=== PATIENT | female | born 1960 | race Caucasian/White ===

== ENCOUNTER → 2017-09-07 | Outpatient (CLI) | payer SELFPAY ==
--- NOTE | 2017-09-07 11:10 | RADIOLOGY REPORT (SQ) ---
EXAM DESCRIPTION: HIP LEFT AP/LATERAL COMPLETED DATE/TIME: 09/07/2017 10:24 am REASON FOR STUDY: PAIN IN LEFT HIP M25.552 PAIN IN LEFT HIP COMPARISON: None. NUMBER OF VIEWS: Two views. TECHNIQUE: AP pelvis and additional frog-leg view of the left hip. LIMITATIONS: None. FINDINGS: MINERALIZATION: Normal. LEFT HIP: There is mild narrowing of the medial joint space in the left hip. There is subchondral cy sts in left acetabulum. There is a tiny spur at the inferior margin of the left femoral head. RIGHT HIP: No fracture or dislocation. No worrisome bone lesions. PUBIS AND ISCHIUM: No fracture. PELVIS: No fracture. SACRUM: No fracture or dislocation. No worrisome bone lesions. LOWER LUMBAR SPINE: No fracture or dislocation. No worrisome bone lesions. No significant disc disea se. SOFT TISSUES: No findings. OTHER: No other significant finding. IMPRESSION: Mild degenerative joint changes in the left hip. TECHNICAL DOCUMENTATION: JOB ID: [id number] [employer]- All Rights Reserved
== END ==
LOC: OD 10:00
PROVIDERS: ATTEND Family Medicine
DX: M25.552 Pain in left hip (principal)

== ENCOUNTER → 2017-11-05 | Outpatient (CLI) | payer SELFPAY ==
--- NOTE | 2017-11-13 17:39 | WOMENS IMAGING REPORT ---
EXAM DESCRIPTION: BILAT SCREENING MAMMO W/CAD COMPLETED DATE/TIME: 11/05/2017 11:16 am REASON FOR STUDY: ROUTINE SCREENING; Z12.31 Z12.31 ENCNTR SCREEN MAMMOGRAM FOR MALIGNANT NEOPLASM O F YOGI COMPARISON: 09/05/2015, Marla Walsh TECHNIQUE: Standard craniocaudal and mediolateral oblique views of each breast recorded using digita l acquisition. LIMITATIONS: None. FINDINGS: Findings present which are benign by mammographic criteria. No suspicious masses, calcifi cations or architectural distortion. Pertinent benign findings: Benign calcification in the right breast retroareolar region medially, and left breast retroareolar region centrally. Asymmetric benign breast tissue in the lower inner quadr ant left breast. Read with the assistance of CAD. .[facility] - R2 [employer] Version 1.3 .[facility] - R2 [employer] Version 1.3 .[facility] - R2 [employer] Version 2.4 .[facility] - R2 Cenova Version 2.4 .[facility] - R2 [employer] Version 9.2 Benign mammographic findings may include one or more of the following: Smooth masses, popcorn/rim/co arse calcifications, asymmetries, post-procedure changes, and lesions with long-standing stability. IMPRESSION: BENIGN MAMMOGRAPHIC FINDINGS. BIRADS 2 BREAST DENSITY: c. The breasts are heterogeneously dense, which may obscure small masses. BIRAD: 2 BENIGN FINDING(S) RECOMMENDATION: ROUTINE SCREENING Please consider bilateral screening tomosynthesis in October 2018, given heterogeneously dense tissu e COMMENT: The patient has been notified of the results by letter per SA requirements. Additional no tification policies are in place for contacting patient with suspicious or incomplete findings. Quality ID #[id number]: The [employer] recommends an annual screening mammogram for women aged 40 years or over. This facility utilizes a reminder system to ensure that all patients receive reminder letters, and/or direct phone calls for appointments. This includes reminders for routine scr eening mammograms, diagnostic mammograms, or other Breast Imaging Interventions when appropriate. Th is patient will be placed in the appropriate reminder system. The [employer] ([employer]) has developed recommendations for screening MRI of the breast s in certain patient populations, to be used in conjunction with mammography. Breast MRI surveillanc e may be appropriate for women with more than 20% lifetime risk of developing breast cancer as deter mined by genetic testing, significant family history of the disease, or history of mantle radiation f or Hodgkins Disease. [employer] Practice Guidelines 2008. TECHNICAL DOCUMENTATION: FINDING NUMBER: (1) ASSESSMENT: (1) JOB ID: [id number] [employer]- All Rights Reserved
== END ==
LOC: WI 10:46
PROVIDERS: ATTEND Family Medicine
DX: Z12.31 Encounter for screening mammogram for malignant neoplasm of breast (principal)
CPT/HCPCS: 77067; G0202

== ENCOUNTER → 2017-12-31 | Outpatient (CLI) | payer SELFPAY ==
--- NOTE | 2017-12-31 09:24 | RADIOLOGY REPORT (SQ) ---
EXAM DESCRIPTION: MRI LT LOWER JOINT WITHOUT COMPLETED DATE/TIME: 12/31/2017 9:07 am REASON FOR STUDY: M16.12 UNILATERAL PRIMARY OSTEOARTHRITIS, LEFT HIP M16.12 UNILATERAL PRIMARY OSTE OARTHRITIS, LEFT HIP COMPARISON: Left hip films 09/07/2017 TECHNIQUE: [employer] images acquired and stored on PACS. Multiplanar images to include fat sensitive s equences as T1, fluid sensitive sequences as T2/STIR and gradient echo sequences. Large FOV fat and f luid sensitive sequences include pelvis and opposite hip. LIMITATIONS: None. FINDINGS: BONE CORTEX AND MARROW: No generalized marrow replacement. No occult fracture. No worriso me bone lesions. LEFT HIP: FEMORAL HEAD: No occult fracture. Moderate chondromalacia with a less than 5 mm subcortical cyst hamilton ght-bearing surface left femoral head on coronal image 15 and sagittal image 16. Normal sphericity o f femoral head/neck junction. No acetabular dysplasia. No evidence femoroacetabular impingement. No s ignificant effusion. ACETABULUM: Moderate subcortical edema with small subcortical cyst formation along the anterior edge of the left acetabular roof, best shown on coronal image 11 and sagittal image 18. Moderate chondrom alacia. LABRUM: Non arthrogram images of the labrum demonstrate degenerate tooth change in the anterior labru m on sagittal images 18-21 TROCHANTER: Trace trochanteric bursal fluid without edema of the distal gluteal tendon or greater tro chanter bone marrow OPPOSITE HIP: Mild subcortical edema in the anterior acetabular roof on coronal image 11. Mild chond romalacia at the hip joint. No effusion. Trace fluid in the trochanteric bursa PELVIS, LOWER LUMBAR SPINE, SACROILIAC JOINTS: PELVIS : No insufficiency/stress fractures. No significant degenerative changes. Sacroiliac joints normal. L SPINE: Lower lumbar bulky facet arthropathy at L4-5 and L5-S1 MUSCLES AND SOFT TISSUES: Adductors and piriformis normal. Abductors and greater trochanteric bursa n ormal without edema or fluid. Iliopsoas bursa without fluid. Hamstring attachments without edema or t ear. PELVIC SOFT TISSUES: No masses or adenopathy. SCIATIC NERVE: Identified, without masses or abnormal signal. OTHER: No other significant finding. IMPRESSION: Osteoarthritis left hip TECHNICAL DOCUMENTATION: JOB ID: [id number] [employer]- All Rights Reserved
== END ==
LOC: RAD 08:42
PROVIDERS: ATTEND Family Medicine
DX: M16.12 Unilateral primary osteoarthritis, left hip (principal)

== ENCOUNTER 2020-12-21 10:29 | Emergency (ER) | payer SELFPAY ==
[2020-12-21 11:42] LABS: ABSOLUTE EOSINOPHILS # (AUTO) 0.1 10^3/uL (0.0-0.6); ABSOLUTE MONOCYTES (AUTO) 0.7 10^3/uL (0.1-1.4); ABSOLUTE NEUT (AUTO) 8.1 10^3/uL (1.7-8.2); BASOPHILS % (AUTO) 0.4 % (0-2); EOSINOPHILS % (AUTO) 0.9 % (0-6); HEMATOCRIT 39.6 % (36.0-47.0); HEMOGLOBIN 13.8 g/dL (12.0-15.5); LYMPHOCYTES % (AUTO) 10.3 % (13-45); MEAN CORPUSCULAR HEMOGLOBIN 31.5 pg (27.0-33.4); MEAN CORPUSCULAR HGB CONC 34.9 g/dL (32.0-36.0); MEAN CORPUSCULAR VOLUME 90 fl (80-97); MONOCYTES % (AUTO) 6.7 % (3-13); PLATELET COUNT 229 10^3/uL (150-450); RED CELL DISTRIBUTION WIDTH 13.4 % (11.5-14.0); SEGMENTED NEUTROPHILS % (AUTO) 81.7 % (42-78); TOTAL CELLS COUNTED % (AUTO) 100 %; WHITE BLOOD COUNT 9.9 10^3/uL (4.0-10.5)
[2020-12-21 12:04] LABS: ALBUMIN 4.7 g/dL (3.5-5.0); ALKALINE PHOSPHATASE 84 U/L (38-126); ANION GAP 10 (5-19); ASPARTATE AMINO TRANSFERASE 40 U/L (14-36); BILIRUBIN,DIRECT 0.2 mg/dL (0.0-0.4); BILIRUBIN,TOTAL 0.8 mg/dL (0.2-1.3); BLOOD UREA NITROGEN 16 mg/dL (7-20); CALCIUM 9.8 mg/dL (8.4-10.2); CARBON DIOXIDE 30 mmol/L (22-30); CHLORIDE 102 mmol/L (98-107); GLUCOSE 110 mg/dL (75-110); POTASSIUM 3.5 mmol/L (3.6-5.0)
[2020-12-21 12:06] LABS: ACETAMINOPHEN < 10 ug/mL (10-30); ALCOHOL < 10 mg/dL (NONE DETECTED); SALICYLATE < 1.0 mg/dL (2.0-20.0)
--- NOTE | 2020-12-21 12:06 | EKG REPORT ---
SEVERITY:- ABNORMAL ECG - SINUS RHYTHM MULTIPLE ATRIAL PREMATURE COMPLEXES NONSPECIFIC ST-T CHANGES- INFERIOR LEADS : Confirmed by: Curt Zabala MD 21-Dec-2020 12:05:45
[2020-12-21 14:03] LABS: APPEARANCE,URINE SLIGHTLY-CLOUDY; BILIRUBIN,URINE NEGATIVE (NEGATIVE); GLUCOSE, URINE NEGATIVE (NEGATIVE); KETONES,URINE TRACE mg/dL (NEGATIVE); LEUKOCYTE ESTERASE,URINE MODERATE (NEGATIVE); NITRITE,URINE NEGATIVE (NEGATIVE); PROTEIN,URINE 100 mg/dL (NEGATIVE); URINE SPECIFIC GRAVITY 1.029
[2020-12-21 14:04] LABS: COLOR,URINE YELLOW
[2020-12-21 14:18] LABS: URINE AMPHETAMINES SCREEN NEGATIVE; URINE BARBITURATES SCREEN NEGATIVE; URINE BENZODIAZEPINES SCREEN NEGATIVE; URINE COCAINE SCREEN NEGATIVE; URINE MARIJUANA (THC) SCREEN NEGATIVE; URINE METHADONE SCREEN NEGATIVE; URINE PHENCYCLIDINE SCREEN NEGATIVE
--- NOTE | 2020-12-21 15:13 | ER Document Report ---
ED General <RISSA MOORE - Last Filed: 12/21/20 19:04> - General Mode of Arrival: Medic Information source: Patient, Emergency Med Personnel TRAVEL OUTSIDE OF THE [place] IN LAST 30 DAYS: No - Related Data Home Medications: Trazadone. Tramadol <GÓMEZ PAYAN - Last Filed: 12/21/20 20:30> - General Chief Complaint: Overdose Stated Complaint: POSSIBLE OVERDOSE Time Seen by Provider: 12/21/20 11:25 Primary Care Provider: [facility] [Outside] - Follow up as needed [facility] [Outside] - Follow up as needed ROSITA LOMBARDO DO [Primary Care Provider] - Follow up as needed - HPI Notes: Patient presents claiming suicidal intent by taking 3 g of trazodone at approximately 7 AM this morning. When found by EMS she was incontinent of stool but was easily awakened. Patient states that she intended to kill herself and she still intends to kill herself. She claims that she took a smaller amount of trazodone along with some Xanax several nights ago fell asleep and then woke up "still alive". Denies ever being in inpatient psychiatry but has been in counseling in the past. States she lives alone with 2 dogs. Her father a couple of years ago who she was very close to. Subsequent to that her boyfriend . Since then she has been alone. 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 (GÓMEZ PAYAN) Past Medical History - General Information source: Patient - Social History Smoking Status: Current Every Day Smoker Family History: Reviewed & Not Pertinent Patient has suicidal ideation: Yes Patient has homicidal ideation: No - Medical History Medical History: Other <GÓMEZ PAYAN - Last Filed: 12/21/20 20:30> - Medical History Notes: Past medical history as documented in the electronic health record is reviewed. (GÓMEZ PAYAN) Review of Systems <GÓMEZ PAYAN - Last Filed: 12/21/20 20:30> - Review of Systems Notes: All other systems reviewed are negative or noncontributory except as noted the present illness. (GÓMEZ PAYAN) Physical Exam <GÓMEZ PAYAN - Last Filed: 12/21/20 20:30> - Vital signs Vitals: Resp BP Pulse Ox 21 H 149/81 H 99 12/21/20 11:04 12/21/20 11:04 12/21/20 11:04 - Notes Notes: General: Well-developed female slender somewhat flat affect soiled with feces basically from head to toe in no acute physiologic distress. Vital signs and nursing documentation were reviewed. HEENT: Grossly normal to inspection. Neck: Supple nontender. Chest: Lungs clear to auscultation all echeverria. Heart: Regular rate and rhythm no murmur. Abdomen: Soft nontender no muscular megaly. Extremities: No clubbing cyanosis or edema. Skin: Warm moist good turgor no rashes. Neurologic: Alert oriented x3. Cranial nerves II through appear intact. No motor or sensory deficits. Psych: Patient is somewhat flat affect and depressed mood. She states that she does intend to kill herself. She states that she is not homicidal. When asked about hearing voices or feeling persecuted she does describe some nebulous sort of vaguely psychotic symptoms. There does not appear to be any karin in her presentation. (GÓMEZ PAYAN) Course - Laboratory Results Result Diagrams: 12/21/20 11:13 12/21/20 11:13 <RISSA MOORE - Last Filed: 12/21/20 19:04> - Laboratory Results Result Diagrams: 12/21/20 11:13 12/21/20 11:13 Critical Laboratory Results Reviewed: No Critical Results - Radiology Results Critical Radiology Results Reviewed: No Critical Results - EKG Interpretation by Me EKG shows normal: Sinus rhythm Rate: Normal When compared to previous EKG there are: Previous EKG unavailable <GÓMEZ PAYAN - Last Filed: 12/21/20 20:30> - Re-evaluation Re-evalutation: 12/21/20 15:13 Patient remained hemodynamically stable throughout her stay. I discussed her case with the behavioral health folks at approximately 1500 hrs. They have gotten some additional information from her neighbors are going to come back and reassess her again and then make a final recommendation. 12/21/20 20:27 The patient remained hemodynamically stable throughout her stay. She was cooperative with her assessment. She is interested in voluntary admission for mental health treatment. These arrangements were made. The plan is to disc harge her from the emergency department. The facility will be ready for her to arrive at 8:30 PM. All of this was coordinated by Daria Wild from our mental health department. (GÓMEZ PAYAN) - Vital Signs Vital signs: Temp Pulse Resp BP Pulse Ox 97.7 F 87 21 H 121/87 H 97 12/21/20 11:41 12/21/20 11:41 12/21/20 14:01 12/21/20 14:01 12/21/20 14:01 - Laboratory Results Laboratory Results Interpreted: 12/21/20 12/21/20 12/21/20 11:13 11:13 13:40 Lymph % (Auto) 10.3 L Seg Neutrophils % 81.7 H Potassium 3.5 L AST 40 H ALT 37 H Urine Protein 100 H Urine Ketones TRACE H Urine Urobilinogen 4.0 H Ur Leukocyte Esterase MODERATE H Urine Ascorbic Acid 20 H Salicylates < 1.0 L Acetaminophen < 10 L - EKG Interpretation by Me Additional EKG results interpreted by me: 12/21/20 20:29 Frequent PACs otherwise unremarkable. (GÓMEZ PAYAN) Discharge <RISSA MOORE - Last Filed: 12/21/20 19:04> <GÓMEZ PAYAN - Last Filed: 12/21/20 20:30> - Discharge Clinical Impression: Overdose Qualifiers: Encounter type: initial encounter Injury intent: intentional self-harm Qualified Code(s): T50.902A - Poisoning by unspecified drugs, medicaments and biological substances, intentional self-harm, initial encounter Condition: Stable Disposition: HOME, SELF-CARE Additional Instructions: You have been evaluated by both medical and behavioral health teams for possible overdose. You have been deemed appropriate for discharge. While in the emergency department you received the following services/or had access to: Medical screening and assessment, nursing services, dietary services, pharmaco logical services, one-on-one counseling and/or psychotherapy, environmental services, and continuous observation by a patient patient safety coordinator. You should continue your home medications as prescribed and follow up with your medication provider. Overdose You have taken more medication than you should have. After your evaluation and care, it is felt that your overdose is not likely to be harmful or of any significant consequences to you and you are being discharged. In the future, you should be careful not to take more medications than what is prescribed for you. Although your overdose does not seem to be of any danger to you at this time, if you develop any unusual or unexpected symptoms after your discharge, you should return to the Emergency Department immediately for re-evaluation. Depression Your evaluation reveals that you have mental depression. While symptoms may be vague, they often include disturbance of sleep, fatigue, loss of appetite, and general loss of interest in life. While depression may be a side effect of drugs, or a reaction to a major change in your life, many cases have no known cause. If depression is acute, and related to a major loss in your life, you can expect it to clear completely with time. If you have been depressed a long time, are prone to repeated bouts of depression or low mood, or have been thinking of suicide, get help. Depression can be treated with anti-depressant medication and counselling. Long-term depression will often take a few weeks to clear, even with appropriate medication. Follow-up care is important. Contact your physician, the hospital emergency center, crisis line, or your counsellor if you are losing control or having self-destructive thoughts. Suicidal Ideation Suicidal ideation is a common medical term for thoughts about suicide, which may be as detailed as a formulated plan, without the suicidal act itself. Although most people who undergo suicidal ideation do not commit suicide, some go on to make suicide attempts. The range of suicidal ideation varies grea tly from fleeting to detailed planning, role playing, and unsuccessful attempts. While thoughts about suicide are common, most people do not carry out serious actions to commit suicide. However, based upon your evaluation and discussion with you, we believe you are not currently at risk to act upon your thoughts of suicide. Therefore, you will be discharged home, with plan to immediately go to [facility]. Follow up care: You are currently not involved in outpatient services, but are highly recommended to begin outpatient services. You are also recommended to request medication management with outpatient provider to assist with depression, if you feel this is necessary. You have agreed to go to [facility], voluntarily, and you calling and providing them with your information, you have been accepted. You will be going to [facility] at 2030 for an initial assessment, as follow up. You have been given a community outpatient referral list to include phone numbers for [facility] and [facility] mobile crisis. If you experience worsening or a significant change in your symptoms, notify the physician immediately, utilize mobile crisis, or return to the Emergency Department at any time for re-evaluation. Your neighbor, Ms. Turner, has agreed to take care of your dogs until you return home and has bene provided the phone number to [place] [facility] if she needed to try and get in touch with you. Dr. Laughlin was consulted to care management of this patient; attending physicians in agreement with recommendations and disposition. Referrals: ROSITA LOMBARDO, [Primary Care Provider] - Follow up as needed [facility] [Outside] - Follow up as needed [facility] [Outside] - Follow up as needed
--- NOTE | 2020-12-21 16:11 | PSYCHOLOGICAL NOTE ---
Psych Note - Psych Note Date seen by psych provider: 12/21/20 Time seen by psych provider: 12:02 Psych Note: Reason for Consult: possible overdose Consent permissions: Yue, neighbor, ; Vijay, nurse ob of [employer] (pt was employed here) [phone] [id number] Patient is a 60 year old female who was admitted to the ED via EMS. Patient reports intentionally overdosing on 30 pills of Trazodone. She states she had it refilled a couple of days ago and ingested the whole bottle. She states she was ready to and has intermittent thoughts of not being alive. Patient denies current suicidal ideation, plan, and intent, however notes she is upset she failed at attempting suicide. She reports attempting suicide a couple of days ago by taking about 10 Xanax. She did not seek medical or mental health treatment for this. Patient is unable to recall psychiatric medications she is prescribed and informed clinician to check the list on her chart. Patient reports seeing a psychologist three times in her past; when she was a child, when she got a DUI several years ago, and when her father in 2017. When asked about Jaxon Cloud as a POC on her chart, patient states that Marco was her boyfriend who about 1.5 years ago. Patient reports she lives alone with 2 dogs in which her neighbor, Yue, is currently taking care of. She state she is involved with a gentleman who is . She reports having sex with him 2 weeks ago and is now concerned about passing HIV to him as she fears she may have HIV. Patient fears this due to never having been tested and having small lumps on her hip, which she researched and this is a sign of HIV, according to patient. Patient reports stressors to include feeling guilty about possibly passing HIV to this man. She states she is still currently involved with him. Patient denies current suicidal and homicidal ideation, plan, and intent. She states she has no kids, but has a brother in [place] in which she does not have his number and does not want him contacted. 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 She has been to rehab in the past. [id number] Checked back in with patient. Inquired about Trazodone overdose as patients labs do not support and symptoms are not consistent with what poison control reported. Patient swears she ingested Trazodone, went to lay back down and couldnt sleep, and then went to her porch when her head started buzzing. She states her neighbor came over and patient asked her to call for help. Clinician inquired about patient asking Yue for dog assistance this weekend due to being out of town and patient states she planned to go to a psychiatric facility. When asked why patient chose to overdose and not go to the psychi atric facility, she noted that there was more to the story. She states she is positive for herpes and asked the man she is involved with to get checked. She states she may have AIDS and began to destroy information and evidence on her computer. Patient reports that she then went to the police station ([facility]) to report that she destroyed her computer and that she cannot get in trouble for the AIDS thing as this was the first time it happened. She reports she is on the registry and has not been in the past. She states she is embarrassed and had 3 choices, run away, sit and wait, or kill herself. She states she wants to get help and "make a change." Patient inquires about Coral taking care of dogs all weekend and was informed clinician can call Yue back with update if admitted to [facility]. Clinician also reminded patient she already inquired with Yue about taking care of dogs this weekend and Yue confirmed. Clinician will reach out to bakari Turner. Collateral: bakari Turner, [id number] Yue reports being friends with Gracie for about 2 years, since living near her. She states she is at work and will call back in 15 minutes. [id number] Yue states she does not know about mental health history. She reports patient used to go to therapy and is prescribed anti-depressants. Neighbor reports patient has never talked about trying to hurt herself or anything extreme. Bakari reports known history of alcoholism, over 10 years ago. She reports when 11 was called patient was sitting on her porch, cold, responsive, but seemed out of it. Neighbor reports patient allegedly vomited prior to neighbor arriving; notes another neighbor was present as well. Bakari is unsure about stressors due to working a lot recently and not seeing patient much over the past month. Reports patient used to work at [employer] (where neighbor also works), but stopped in fall 2019. 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 Reports patients family does not live in the state of [place]. Neighbor states finding out at work today that patient told a co-worker of hers, at [employer], that patient reported to him last night that she needed to check herself into a mental facility for the weekend. Neighbor notes that last night patient text her to ask if she could let the dogs out this weekend said she was going out of town. Clinician inquired about attention seeking behaviors and neighbor denies. Patient was alert and oriented to self, person, place, time and situation. Mood was lethargic with congruent affect. She denies current suicidal and homicidal ideation, plan, and intent. Patient did not appear to be responding to internal stimuli as evidenced by fair eye contact and answering questions appropriately when addressed. Thought processes are linear and organized. Conversational speech was within normal limits for rate, tone and prosody. Intellectual abilities are estimated to be average. Insight, judgment, and impulse control were poor as evidenced by allegedly taking a bottle of pills. Patient engages appropriately. She demonstrates future forward goal oriented thinking as she inquires about her dogs being taken care of this weekend. Clinical Presentation: suicidal ideations, depression, alleged overdose IVC Criteria per [place] GS 122C Dangerous to others Within the relevant past the individual No has inflicted or attempted to inflict or threatened to inflict serious bodily harm on another AND No that there is a reasonable probability that this conduct will be repeated. OR No has acted in such a way as to create a substantial risk of serious bodily harm to another AND No that there is a reasonable probability that this conduct will be repeated. OR No has engaged in extreme destruction of property AND NO that there is a reasonable probability that this conduct will be repeated. Previous episodes of dangerousness to others, when applicable, may be considered when determining reasonable probability of future dangerous conduct. Clear, cogent, and convincing evidence that an individual has committed a homicide in the relevant past is prima facie evidence of dangerousness to others. Dangerous to self Within the relevant past the individual has done any of the following: acted in such a way as to show ALL of the following: No The individual would be unable without care, supervision, and the continued assistance of others not otherwise available, to exercise self- control, judgment, and discretion in the conduct of the individual's daily responsibilities and social relations or to satisfy the individual's need for nourishment, personal or medical care, long term, or self-protection and safety. AND No There is a reasonable probability of the individual suffering serious physical debilitation within the near future unless adequate treatment is given. A showing of behavior that is grossly irrational, of actions that the individual is unable to control, of behavior that is grossly inappropriate to the situation, or of other evidence of severely impaired insight and judgment shall create a prima facie inference that the individual is unable to care for himself or herself. OR Yes has attempted suicide or threatened suicide Patient reports attempting suicide via taking about 30 pills of Trazodone 100mg AND No that there is a reasonable probability of suicide unless adequate treatment is given OR No has mutilated himself or herself or attempted to mutilate himself or herself AND No that there is a reasonable probability of serious self-mutilation unless adequate treatment is given. NOTE: Previous episodes of dangerousness to self, when applicable, may be considered when determining reasonable probability of physical debilitation, suicide, or self-mutilation. Impression\\plan: Patient is cleared from psychiatric services. She was admitted due to a possible overdose. Patient wants to receive inpatient treatment. She reports depression and stressors related to possible physical health issues and states that she "wants a change." Patient has called [facility] and reserved a bed for herself. She has signed an Authorization for Release of Health Information for for behavioral health team to fax paperwork to [facility] informing them she is medically cleared post alleged overdose. Patient has an appointment at [facility] at 2029. This information has been relayed to security and the charge nurse. It is recommended that ED staff contact [facility] prior to 2029 to have staff meet them senior care, at the stop sign. It is recommended that patient be walked with ED staff and cyber security (for safety of [facility] staff) to the stop sign near [facility] so that patient knows how to get to her next facility. Patient has been given community resource sheet for outpatient facilities in the community and mobile crisis. She is recommended to begin services with outpatient therapy. Patient's neighbor, Yue, was contacted on behalf of patient, with patient's verbal consent. Yue agrees to care for patient's dogs while patient is seeking further treatment at [facility]. Patient gave verbal consent to inform Yue where she was going and Yue was given name and number of [facility]. Patient is recommended to utilize mobile crisis or return to the ED if symptoms return or worsen. Dr. Laughlin was consulted to care management of this patient; attending physicians in agreement with recommendations and disposition. Case management: 1613- after receiving a signed Authorization for Release of Health Information form from patient (in which nurse assisted in getting completed), patient's information was faxed to [facility]. Due to concerns of alleged overdose, [facility] inquired for medical clearance documentation prior to allowing patient to schedule a bed, voluntarily. 1725 spoke to Martha at [facility]. She confirmed patient has been accepted and has an appointment at [address] [place] [address]. Relayed to patient. 1738 called Yue, patients neighbor, ; unavailable at this time 1826 attempted to call Yue back as there was a missed call from her; unavailable at this time. 1828 spoke to Yue and updated about patient going to [facility]; Yue inquired about dog food; clinician asked patient and relayed to Yue
[2020-12-21 20:50] VITALS: BP 108/60
== END 2020-12-21 20:52 | disposition home or self-care (01) ==
LOC: ER 10:29
DX: T43.212A Poisoning by selective serotonin and norepinephrine reuptake inhibitors, intentional self-harm, initial encounter (principal); R45.851 Suicidal ideations; F17.200 Nicotine dependence, unspecified, uncomplicated
CPT/HCPCS: 36415; 80053; 80307; 81001; 83735; 85025; 93005; 93010; 99285